=== PATIENT | male | born 1955 | race African-American/Black ===

== ENCOUNTER 2018-07-01 21:14 | Emergency (ER) | payer OTHER, SELFPAY ==
--- NOTE | 2018-07-01 22:29 | ULT ---
FEXAM: Right lower extremity venous Doppler PROVIDED CLINICAL HISTORY: Right lower extremity pain FINDINGS: Grayscale and color Doppler sonography with spectral analysis was performed of the right common femor al, femoral, popliteal, posterior tibial, greater saphenous and profunda femoral veins. The evaluated venous structures demonstrate a normal sonographic appearance. There is noncompressibility and dimin ished flow involving a superficial vein of the right ankle in the region of patient pain. IMPRESSION: No sonographic evidence for right lower extremity deep venous thrombosis. Superficial vein thrombosis in the region of patient pain.
== END 2018-07-01 23:22 | disposition home or self-care (01) ==
LOC: ERS 21:14
DX: I82.811 Embolism and thrombosis of superficial veins of right lower extremity (principal); I25.10 Atherosclerotic heart disease of native coronary artery without angina pectoris; I10 Essential (primary) hypertension; J45.909 Unspecified asthma, uncomplicated; Z87.891 Personal history of nicotine dependence; Z79.82 Long term (current) use of aspirin; Z79.899 Other long term (current) drug therapy